=== PATIENT | female | born 1995 | race Caucasian/White ===

== ENCOUNTER 2018-03-16 11:36 | Emergency (ER) | payer BC, OTHER ==
[2018-03-16] MEDS ORDERED: Ketorolac Tromethamine 30 MG/ML VIAL ONE (11:50)
[2018-03-16 12:27] LABS: Band 10 % (5-11); Eosinophils 1 % (0-10); Hemoglobin 15.3 g/dL (12.0-16.0); Lymphocytes 15 % (21-51); MDiff Complete? YES; Mean Corpuscular HGB CONC 35.1 g/dL (32.0-36.0); Mean Corpuscular Hemoglobin 29.3 pg (27.0-31.0); Mean Corpuscular Volume 83.5 fL (78.0-98.0); Mean Platelet Volume 7.3 fL (7.4-10.4); Monocytes 5 % (0-10); Neutrophil 56 % (42-75); Platelet Count 230 thou/uL (130-400); Platelet Morphology Comment Appears Adequate; RBC Distribution Width 11.4 % (11.5-14.5); Reactive Lymphocytes 13 % (0-10); Red Blood Cell (RBC) Count 5.21 mill/uL (4.20-5.40); White Blood Cell (WBC) Count 13.9 thou/uL (4.8-10.8)
[2018-03-16 12:31] LABS: Bilirubin Small (Negative); Blood, Urine Large (Negative); Clarity Cloudy (Clear); Glucose, Urine (Dipstick) Negative (Negative); Leukocyte Negative (Negative); Nitrite Negative (Negative); Protein, Urine (Dipstick) 30 mg/dL (Neg-Trace); pH, Urine 6.5 (5.0-9.0)
[2018-03-16 12:31] LABS: BHCG - Serum Negative (NEGATIVE); Pregs Control Background? CLEAR/WHITE (CLR/WHITE); Pregs Control Bar Appear? YES (CONTROL BAR)
[2018-03-16 12:38] LABS: Bacteria/HPF 2+ HPF (None Seen); RBC/HPF 21-50 HPF (0-3)
[2018-03-16 12:39] LABS: Hyaline Casts/LPF 0-3 HYALINE CAST LPF (0-3 Hyaline)
[2018-03-16 12:40] LABS: ALT (SGPT) 26 U/L (8-55); AST (SGOT) 16 U/L (5-34); Albumin 4.1 g/dL (3.5-5.0); Alkaline Phosphatase 53 U/L (40-150); Anion Gap 15 mmol/L (10-20); BUN (Urea Nitrogen) 13 mg/dL (7.0-18.7); Bilirubin, Total 0.8 mg/dL (0.2-1.2); Calc. Creatinine Clearance 0 mL/min (70-130); Carbon Dioxide 20 mmol/L (22-29); Chloride 109 mmol/L (98-107); Estimated GFR-MDRD 86; Globulin 2.2 g/dL (2.4-3.5); Glucose 101 mg/dL (70-105); Potassium 3.5 mmol/L (3.5-5.1); Protein, Total 6.3 g/dL (6.0-8.3); Sodium 140 mmol/L (136-145)
--- NOTE | 2018-03-16 14:18 | CT ---
CT OF ABDOMEN AND PELVIS PERFORMED WITHOUT CONTRAST ENHANCEMENT: Date: 03/16/18 HISTORY: Right flank pain. FINDINGS: Lung bases are clear. Liver, spleen, pancreas, and gallbladder regions all appear unremarkable. Right and left adrenal glands, and right and left kidneys are normal in size. There are no definite l eft-sided renal calculi seen. There is minimal dilatation of the right collecting system as compared to the left. Right ureter is minimally larger than the left side and there is a 2-3 mm calcification seen within the right side of the pelvis which appears to be a the right ureterovesical junction sugg esting small stone. There is no significant periaortic or mesenteric adenopathy. The appendix region appears unremarkable. There is trace free fluid within the pelvis seen. IMPRESSION: Several punctate right renal calculi and a 2-3 mm right ureterovesical junction calculus noted causin g very minimal dilatation of the right collecting system and ureter. POS: DEXTER
== END 2018-03-16 13:28 | disposition home or self-care (01) ==
LOC: SCSER 11:36
DX: N20.2 Calculus of kidney with calculus of ureter (principal)
CPT/HCPCS: 36415; 74176; 80053; 81003; 81015; 84703; 85025; 87086; 96361; 96374; J1885

== ENCOUNTER 2018-03-19 21:57 | Emergency (ER) | payer OTHER | END 2018-03-19 23:39 | disposition home or self-care (01) | LOC: SCSER 21:57 | DX: N20.0 Calculus of kidney (principal); Z79.891 Long term (current) use of opiate analgesic; Z79.1 Long term (current) use of non-steroidal anti-inflammatories (NSAID); Z79.899 Other long term (current) drug therapy | CPT/HCPCS: 99281 ==